=== PATIENT | female | born 1950 | race Hispanic/Latino ===

== ENCOUNTER 2024-05-04 07:15 | Emergency (ER) | payer OTHER, MEDICARE ==
[~2024-05-04] VITALS: Ht 152.4 cm; Wt 68.5 kg
[2024-05-04 07:58] LABS: HEMATOCRIT 35.8 % (36-48); MEAN CORPUSCULAR HEMOGLOBIN 29.9 pg (27.0-33.0); MEAN CORPUSCULAR HGB CONC 33.5 g/dL (32.0-36.0); MEAN CORPUSCULAR VOLUME 89.1 fL (79-99); RED BLOOD CELL COUNT(AUTO) 4.02 MIL/uL (4.00-5.50); RED CELL DISTRIBUTION WIDTH 13.2 % (11.0-15.5); WHITE BLOOD COUNT (AUTO) 7.6 K/uL (4.8-10.8)
--- NOTE | 2024-05-04 07:59 | EKG ---
[facility] Test Date: 2024-05-04 Test Time: 07:56:16 Pat Name: JOAN CHEW Department: ED Room: Gender: F Nursery Nurse: [id number] : 1950 Requested By: ISRAEL SANTIAGO Order Number: [id number] Reading MD: Rei Koenig Measurements Intervals [place] Rate: 51 P: 56 PA: 163 QRS: 2 QRSD: 159 T: -10 QT: 497 QTc: 458 Interpretive Statements Sinus rhythm Right bundle branch block No previous ECG available for comparison Electronically Signed On 05-05-2024 07:58:29 [employer] SALES REPRESENTATIVE by Rei Koenig Please click the below link to view image of tracing.
[2024-05-04] MEDS: ondanSETRON 4MG INJ IVP ONE (08:05)
[2024-05-04] MEDS: mecliZINE HCL 25 MG TABLET PO ONE (08:05)
--- NOTE | 2024-05-04 08:10 | ERN ---
General Chief Complaint: Weakness Stated Complaint: WEAKNESS Time Seen by MD: 07:27 History of Present Illness Initial Comments This is a case of a 73-year-old female with a past medical history of vertigo, hypertension, diabetes mellitus type 2, high cholesterol , hypothyroidism, right shoulder rotator cuff tear who presented to the ER with the complaints of dizziness, spinning sensation, nausea since 6:00 a.m. in the morning. She states that the spinning sensation increases with change in position of the head lasting few seconds and is also associated with imbalance, bilateral lower extremity weakness while walking. She denies fever, chills, cold, cough, shortness of breath, chest pain, palpitations, abdominal pain, vomiting, burning sensation when urinating/increased frequency of urination, constipation/diarrhea, numbness/tingling sensation in upper and lower extremities. She is currently on metoprolol 25 mg b.i.d., lisinopril 20 mg, levothyroxine, metformin and atorvastatin medications. Allergies: Coded Allergies: No Allergy Information Available (Unverified Allergy, Unknown, 05/04/24) Past Medical History Past Medical History: Diabetes-Type II, High Cholesterol, Hypertension, Hypothyroid Past Surgical History: None Surgical History Other: DENIES PSHX ROS Dictation CONSTITUTIONAL: No chills, no fever, no weakness, no diaphoresis, no malaise, dizziness. HEAD/FACE: No signs of trauma. EENT: No eye pain, no blurred vision, no tearing, no double vision, no ear pain, no ear discharge, no nose pain, no nasal congestion, no throat pain, no throat swelling, no mouth pain. RESPIRATORY: No cough, no orthopnea, no SOB, no stridor, no wheezing. CARDIOVASCULAR: No chest pain, no edema, no palpitations, no syncope. GASTROINTESTINAL/ABDOMINAL: No abdominal pain, no constipation, no diarrhea, nausea, no vomiting. GENITOURINARY: No abnormal discharge, no dysuria, no frequent urination, no hematuria. No complaints of pain in the genitals. MUSCULOSKELETAL: No back pain, no gout, no joint pain, no joint swelling, no muscle pain, no muscle stiffness, no neck pain. INTEGUMENTARY: No change in color, no change in hair/nails, no dryness, no lesion, no lumps, no rash. NEUROLOGICAL/PSYCH: No anxiety, not depressed, no emotional problem, no headache, no numbness, no pre-existing deficit, no history of seizures, no tremors, no weakness. HEMATOLOGIC/LYMPHATIC: Not anemic, no history of blood clots, no apparent bleeding, no bruising, glands not swollen. All Systems Negative, Except as Noted. Physical Exam Physical Exam Dictation Physical Exam Dictation VITAL SIGNS: Reviewed. GENERAL APPEARANCE: Alert, oriented x3, no acute distress HEAD AND FACE: Non-traumatic. EYES: PERRL, pink conjunctivas, eyelid no trauma, anterior chamber clear. Positive Robyn Hallpike maneuver on the left side EARS: Pinnas intact and no signs of trauma or erythema. Ear canals clear and no discharge. TMs no erythema. NOSE: No discharge, no bleeding. OROPHARYNX: Mouth normal, teeth no caries, tongue pink. Pharynx clear, no erythema. Tonsils no exudates, no abscesses noted. Mucous membrane moist. NECK: Supple, non-tender, no thyromegaly, no masses, no JVD, no bruits. BREAST: Deferred. CHEST: No tenderness, no crepitus, no paradoxical movement, no retractions. LUNGS: Clear, well-ventilated, symmetric, no rales, no wheezing, no rhonchi, no stridor, good breath sounds bilaterally. HEART: Regular rate, regular rhythm, no murmur, no gallops. VASCULAR: No peripheral edema. ABDOMEN: Soft, positive bowel sounds, nondistended, no guarding, nontender, no rebound, , no Van's sign, no hernias. RECTAL: Deferred. GENITAL: Deferred. NEUROLOGICAL: Normal speech, gross motor function intact, gross sensory function intact. MUSCULOSKELETAL: Neck nontender, full range of motion, back nontender, full range of motion, restricted motion of the right shoulder secondary to rotator cuff tear. EXTREMITIES: Nontender, full range of motion in bilateral lower extremities with 5/5 motor strength, intact sensations. SKIN: Color pink, dry, no turgor, no rash, no lacerations, no abrasions, no contusions. LYMPHATICS: Deferred. Results Laboratory and Microbiology Lab and Micro Result Laboratory Tests Test 05/04/24 06:59 05/04/24 07:46 05/04/24 10:13 05/04/24 12:32 Urine Color YELLOW (YELLOW) Urine Appearance CLOUDY (CLEAR) H Urine pH 5.0 (5.0-8.0) Urine Specific Chunky 1.019 (1.001-1.031) Urine Protein 10 mg/dL (NEGATIVE) H Urine Glucose (UA) NEGATIVE mg/dL (NEGATIVE) Urine Ketones NEGATIVE mg/dL (NEGATIVE) Urine Occult Blood MODERATE (NEGATIVE) H Urine Nitrate NEGATIVE (NEGATIVE) Urine Bilirubin NEGATIVE mg/dL (NEGATIVE) Urine Urobilinogen 0.2 mg/dL (0.2-1.0) Urine Leukocyte Esterase 250 Ana/uL (NEGATIVE) H Urine RBC 11-25 /HPF (0-1) H Urine WBC 6-10 /HPF (0-1) H Urine Squamous Epithelial Cells MANY /HPF (0-2) Urine Bacteria FEW /HPF (None Seen) White Blood Count 7.6 K/uL (4.8-10.8) Red Blood Count 4.02 MIL/uL (4.00-5.50) Hemoglobin 12.0 g/dL (12.0-16.0) Hematocrit 35.8 % (36-48) L Mean Corpuscular Volume 89.1 fL (79-99) Mean Corpuscular Hemoglobin 29.9 pg (27.0-33.0) Mean Corpuscular Hemoglobin Concent 33.5 g/dL (32.0-36.0) Red Cell Distribution Width 13.2 % (11.0-15.5) Platelet Count 220 K/uL (130-400) Mean Platelet Volume 9.5 fL (7.5-10.5) Nucleated Red Blood Cells 0.0 % (0.0-0.19) Sodium Level 129 mmol/L (136-145) L Potassium Level 3.7 mmol/L (3.5-5.1) Chloride Level 103 mmol/L (101-111) Carbon Dioxide Level 32 mmol/L (21-32) Blood Urea Nitrogen 13 mg/dL (7-18) Creatinine 0.7 mg/dL (0.5-1.0) Glomerular Filtration Rate Calc 92 mL/min (>90) Random Glucose 110 mg/dL (70-105) H Total Calcium 9.1 mg/dL (8.5-10.1) Total Bilirubin 0.6 mg/dL (0.2-1.0) Aspartate Amino Transf (AST/SGOT) 19 U/L (10-37) Alanine Aminotransferase (ALT/SGPT) 20 U/L (12-78) Alkaline Phosphatase 77 U/L (50-136) Troponin I High Sensitivity 85 ng/L (4-50) *H 99 ng/L (4-50) *H 99 ng/L (4-50) *H Total Protein 7.0 g/dL (6.0-8.3) Albumin 3.5 g/dL (3.5-5.0) MDM MDM Potential differential diagnoses include: BPPV UTI Electrolyte imbalance NH Stroke Assessment: We will order CBC to rule any anemia, infections and to evaluate the overall health of the patient. CMP was ordered in order to assess various electrolytes, kidney function, liver function ,protein levels and blood glucose levels, urinalysis, troponin levels. We will order meclizine 25 mg p.o., Zofran 4 mg IV for nausea. I will re-evaluate the patient after treatment and diagnostic exams have returned to determine whether they require further testing, can be safely discharged home, or need admission for further treatment and evaluation. Given the social determinants of health affecting care, including literacy, access to medical care, prescription drug management, and [id number] drugs, I will ensure that treatment plans are tailored accordingly. Revaluation : Patient is alert awake and oriented. She states that she feels better and her dizziness has improved. She denies chest pain, palpitations, chest pressure. NIH stroke scale is 0. Cranial nerve examination is normal. Motor strength is 5/5 in bilateral lower extremities, restricted movement of the right upper extremity due to rotator cuff tear. Speech is normal. Sensations are intact in all dermatomes. Labs sodium 129, troponin trend 85 and 99, urinalysis positive for leukocyte esterase indicating infection. Patient was given 500 mL of NS. Disposition: PATIENT IS BEING DISCHARGED HOME WITH PRESCRIPTION OF MECLIZINE 25 MG T.I.D. P.O. FOR 7 DAYS FOR VERTIGO, MACROBID 100 MG B.I.D. P.O. FOR 5 DAYS, ONDANSETRON 4 MG Q.8H P.R.N. FOR 4 DAYS FOR NAUSEA Advised to follow up with PCP within 2-3 days BPPV Avoid sudden head movements or changes in position to prevent triggering dizziness Be cautious when getting out of bed or bending over. Move slowly and deliberately. Monitor for new symptoms like hearing loss, severe headache or fainting. UTI Complete the Macrobid antibiotic course as directed for UTI Drink plenty of fluids especially water Avoid caffeine, alcohol or spicy foods Monitor for symptoms like persistent or worsening pain or burning during urination, fever, chills, nausea or back/flank pain and seek immediate medical attention in such scenario ED Course Orders Procedure Category Date Status Time Cbc Without LAB 05/04/24 Complete Differential 07:41 Comprehensive LAB 05/04/24 Complete Metabolic Panel 07:41 12 Lead Ekg Tracing- EKG 05/04/24 Complete Technical 07:41 Urinalysis Profile LAB 05/04/24 Complete 07:42 Troponin I High LAB 05/04/24 Complete Sensitivity 07:52 Meclizine Hcl 25 Mg PHA 05/04/24 Complete (Antivert 25 Mg) 08:00 Ondansetron 4mg Inj PHA 05/04/24 Complete (Zofran 4mg Inj) 08:00 0.9% Nacl 500ml PHA 05/04/24 Complete Iv.Soln (Ns 500ml 09:00 Culture Urine RAMEZ 05/04/24 In Process 08:48 Troponin I High LAB 05/04/24 Complete Sensitivity 09:35 Troponin I High LAB 05/04/24 Complete Sensitivity 11:39 Current Medications Medications (Trade) Dose Ordered Sig/Chaparrita Route PRN Reason Start Time Stop Time Status Last Admin Dose Admin Meclizine HCl (ANTIvert 25 mg) 25 mg ONCE ONCE PO 05/04/24 08:00 05/04/24 08:01 DC 05/04/24 08:05 Ondansetron HCl (zoFRAN 4MG INJ) 4 mg ONCE ONCE IVP 05/04/24 08:00 05/04/24 08:01 DC 05/04/24 08:05 Sodium Chloride 500 ml @ 0 mls/hr ONCE ONCE IV 05/04/24 09:00 05/04/24 09:01 DC 05/04/24 08:56 Vital Signs Date Time Temp Pulse Resp B/P (MAP) Pulse Ox O2 Delivery O2 Flow Rate FiO2 05/04/24 12:56 98.2 63 16 167/63 100 Room Air* 0 21 05/04/24 09:45 56 16 132/47 99 Room Air* 0 21 05/04/24 08:28 52 16 142/47 99 Room Air* 0 21 05/04/24 07:27 97.9 59 16 179/62 99 Room Air* 0 21 05/04/24 07:23 97.9 59 16 179/62 99 Room Air 0 DX & DISP Disposition: Discharge Departure Impression: Primary Impression: BPPV (benign paroxysmal positional vertigo) Additional Impression: UTI (urinary tract infection) Critical Time: 30 minutes Condition: Stable Scripts Meclizine HCl (Medi-Meclizine) 25 Mg Tablet 1 TAB PO TID PRN for VERTIGO for 7 Days, #21 TAB 0 Refills Prov: AMY ALLISON MD 05/04/24 Ondansetron (Ondansetron Odt) 4 Mg Tab.rapdis 1 TAB PO Q8HPRN PRN for nausea/vomiting for 4 Days, #12 TAB 0 Refills Prov: AMY ALLISON MD 05/04/24 Nitrofurantoin/Nitrofuran Mac (Macrobid) 100 Mg Cap 1 CAP PO BID for 5 Days, #10 CAP 0 Refills Prov: AMY ALLISON MD 05/04/24 Additional Instructions: Advised to follow up with PCP within 2-3 days BPPV Avoid sudden head movements or changes in position to prevent triggering dizziness Be cautious when getting out of bed or bending over. Move slowly and deliberately. Monitor for new symptoms like hearing loss, severe headache or fainting. UTI Complete the Macrobid antibiotic course as directed for UTI Drink plenty of fluids especially water Avoid caffeine, alcohol or spicy foods Monitor for symptoms like persistent or worsening pain or burning during urination, fever, chills, nausea or back/flank pain and seek immediate medical attention in such scenario Referrals: CHAVO REHMAN MD (PCP) ATTESTATION BY PHYSICIAN I have seen and examined the patient. I reviewed the documentation, medical decision making, and treatment plan as noted by the RESIDENT above. I agree with the findings and plan of care. AMY VEGA MD, MD May 04, 2024 08:10
[2024-05-04 08:15] LABS: ALBUMIN 3.5 g/dL (3.5-5.0); BILIRUBIN,TOTAL 0.6 mg/dL (0.2-1.0); CREATININE 0.7 mg/dL (0.5-1.0); POTASSIUM 3.7 mmol/L (3.5-5.1)
[2024-05-04 08:43] LABS: APPEARANCE,URINE CLOUDY (CLEAR); BILIRUBIN,URINE NEGATIVE (NEGATIVE); COLOR,URINE YELLOW (YELLOW); GLUCOSE, URINE (UA) NEGATIVE (NEGATIVE); KETONES,URINE NEGATIVE (NEGATIVE); LEUKOCYTE ESTERASE ,URINE 250 Leu/uL (NEGATIVE); NITRATE,URINE NEGATIVE (NEGATIVE); OCCULT BLOOD,URINE MODERATE (NEGATIVE); PROTEIN,URINE 10 mg/dL (NEGATIVE); UROBILINOGEN,URINE 0.2 mg/dL (0.2-1.0)
[2024-05-04 08:48] LABS: ADD UA MICROSCOPIC YES
[2024-05-04] MEDS: 0.9% NACL 500ML IV.SOLN 500 ML IV ONE (08:56)
[2024-05-04 09:06] LABS: BACTERIA,URINE FEW /HPF (None Seen); MUCUS,URINE RARE LPF (None Seen); SQUAMOUS EPITHELIAL CELL,UR MANY /HPF (0-2)
[2024-05-04] MEDS ORDERED: MECL25TA39 PO (13:32)
[2024-05-04] MEDS ORDERED: MACR100 PO (13:32)
[2024-05-04] MEDS ORDERED: ONDA-243 PO (13:32)
[2024-05-04 14:31] VITALS: BP 158/64; PULSE 64; RESP 16; TEMP 98.2; O2SAT 98
== END 2024-05-04 14:44 | disposition home or self-care (01) ==
LOC: EDH 07:15
DX: H81.10 Benign paroxysmal vertigo, unspecified ear (principal); N39.0 Urinary tract infection, site not specified; E11.9 Type 2 diabetes mellitus without complications; E03.9 Hypothyroidism, unspecified; E78.00 Pure hypercholesterolemia, unspecified; I10 Essential (primary) hypertension; Z79.899 Other long term (current) drug therapy
CPT/HCPCS: 99284; 96374; 84484 ×3; 80053; 85027; 87086; 81001; 36415; 93005; J7040; J2405

== ENCOUNTER 2024-07-24 03:20 | Emergency (ER) | payer OTHER, MEDICARE ==
[~2024-07-24] VITALS: Ht 152.4 cm; Wt 70.3 kg
[~2024-07-24 03:20] MED LIST: MACR100 PO; MECL25TA39 PO; ONDA-243 PO
[2024-07-24] MEDS ORDERED: physical therapy (03:30)
--- NOTE | 2024-07-24 03:33 | ERN ---
General Chief Complaint: Headache Stated Complaint: C/O HEADACHE Time Seen by MD: 03:28 Source: patient History of Present Illness Initial Comments 74-year-old female with a history of diabetes hypertension and high cholesterol said that she woke up with a headache and she has not been able to fix it with Tylenol or Mary Alice aspirin. Patient states she has no history of sinus infections cough sneezing or allergies. There was no prodrome associated with a headache she does not have a history of migraines. Said the headache started on her right temporal forehead area migrated across to the left side of her temporal area down along the jaw line and then across her right neck. Timing/Duration: 1 hour, 1-3 hours Allergies: Coded Allergies: No Allergy Information Available (Unverified Allergy, Unknown, 05/04/24) Home Meds Active Scripts [physical therapy] No Conflict Check, ELTON .AD DAILY, #1 Prov:SAWYER MCKEON MD 07/24/24 Meclizine HCl (Medi-Meclizine) 25 Mg Tablet, 1 TAB PO TID PRN for VERTIGO for 7 Days, #21 TAB 0 Refills Prov:AMY ALLISON MD 05/04/24 Ondansetron (Ondansetron Odt) 4 Mg Tab.rapdis, 1 TAB PO Q8HPRN PRN for nausea/vomiting for 4 Days, #12 TAB 0 Refills Prov:AMY ALLISON MD 05/04/24 Nitrofurantoin/Nitrofuran Mac (Macrobid) 100 Mg Cap, 1 CAP PO BID for 5 Days, #10 CAP 0 Refills Prov:AMY ALLISON MD 05/04/24 Past Medical History Past Medical History: Diabetes-Type II, High Cholesterol, Hypertension Past Surgical History: None Surgical History Other: DENIES PSHX Constitutional: (-) chills, (-) diaphoresis, (-) fever, (-) malaise, (-) weakness, (-) other documentation EENTM: (-) eye pain, (-) blurred vision, (-) tearing, (-) double vision, (-) ear pain, (-) ear discharge, (-) nose pain, (-) nose congestion, (-) throat p ain, (-) Throat swelling, (-) mouth pain, (-) tooth pain, (-) mouth swelling, (- ) other documentation Respiratory: (-) cough, (-) orthopnea, (-) short of breath, (-) stridor, (-) wheezing, (-) other documentation Cardiovascular: (-) chest pain, (-) edema, (-) palpitations, (-) syncope, (-) dyspnea on exertion, (-) other documentation Gastrointestinal/Abdominal: (-) nausea, (-) vomiting, (-) diarrhea, (-) abdominal pain, (-) abdominal distention, (-) constipation, (-) rectal bleeding, (-) dark stool/melena, (-) other documentation Genitourinary: (-) vaginal discharge, (-) vaginal bleeding, (-) dysuria, (-) frequency, (-) hematuria, (-) pain, (-) other documentation Musculoskeletal: (-) Neck pain, (-) back pain, (-) Flank Pain, (-) joint pain, (-) joint swelling, (-) muscle pain, (-) muscle stiffness, (-) gout, (-) other documentation Skin: (-) laceration, (-) contusion, (-) abrasion, (-) abscess, (-) rash, (-) change in color, (-) change in hair, (-) change in nails, (-) diaphoresis, (-) dryness, (-) other documentation Psych: (-) depression, (-) suicidal ideation, (-) anxiety, (-) emotional problems, (-) auditory hallucinations, (-) visual hallucinations Physical Exam General Appearance: (+) no apparent distress, (+) mild distress Orientation: (+) alert Head/Face Trauma: No Eye: bilateral eye normal inspection, bilateral eye PERRL, bilateral eye EOMI Ear, Nose, Throat: (+) hearing grossly normal, (+) normal ENT inspection, (+) moist mucous membraine, (+) normal pharynx Ear, Nose, Throat Comment She has no maxillary or frontal or supra orbital sinus tenderness Neck: (+) normal inspection, (+) supple, (+) full range of motion Respiratory: (+) chest non-tender, (+) lungs clear, (+) well ventilated Heart: (+) regular, (+) no gallop, (+) murmur Vascular: (+) no edema, (+) normal peripheral pulse Gastrointestinal: (+) soft, (+) non-tender, (+) bowel sound present MDM Patient's migrating headache maybe a migraine or tension headache. Currently the symptoms are not that alarming I do not feel a need for a CT head. This is not the worst headache she has ever had in her entire life. Note her blood pressure is systolic 170. I will give her some Toradol some IV fluids and check her BMP. Also 20 mg IV hydralazine. ED Course Vital Signs Date Time Temp Pulse Resp B/P (MAP) Pulse Ox O2 Delivery O2 Flow Rate FiO2 07/24/24 03:31 98.6 66 20 162/52 97 Room Air* 0 21 07/24/24 03:21 99.7 59 20 185/67 100 Room Air DX & DISP Disposition: Discharge Departure Condition: Stable Scripts [physical therapy] No Conflict Check ELTON .AD DAILY, #1 Prov: SAWYER MCKEON MD 07/24/24 Referrals: HARDIK NEGRETE MD (PCP) SAWYER MCKEON MD Jul 24, 2024 03:33
[2024-07-24] MEDS: hydrALAZine 20MG/ML VIAL IM ONE (03:59)
[2024-07-24] MEDS: ketOROlac 30MG VIAL (30MG/ML) IVP ONE (03:59)
[2024-07-24] MEDS: LACTATED RINGERS 1000ML IV ONE (03:59)
[2024-07-24 04:14] LABS: CREATININE 0.8 mg/dL (0.5-1.0); POTASSIUM 3.8 mmol/L (3.5-5.1)
[2024-07-24] MEDS: ondanSETRON 4MG INJ IVP ONE (04:32)
[2024-07-24] MEDS: ondanSETRON 4MG INJ ONE (04:33)
[2024-07-24] MEDS: CYCLOBENZAPRINE HCL 10 MG TABLET PO ONE (04:36)
--- NOTE | 2024-07-24 06:30 | NUR ---
TRANSFER: CALL PLACED TO [facility]; TRANSFER INITIATED FOR NEUROLOGY SERVICES.
--- NOTE | 2024-07-24 08:01 | HMCIMG ---
CT HEAD/BRAIN W/O CONTRAST HISTORY: Headaches COMPARISON: None TECHNIQUE: Multiple sequential axial images of the head were obtained from the base of the skull through vertex. Patient was not given contrast through intravenous route. FINDINGS: The ventricles and extraventricular CSF spaces are dilated consistent with cerebral atrophy. Nonspecific white matter changes seen. 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 There is no midline shift, mass effect or herniation. No acute intracranial bleed is seen. Visualized portion of the paranasal sinuses are grossly within normal limits. IMPRESSION: 1. No acute intracranial bleed is seen. 2. Atrophy with white matter changes. Suspected acute/subacute right temporal lobe infarct. Report was given by the [facility] service. CT was performed with one or more following dose reduction techniques: automated exposure control, adjustment of the mA and kv according to patient's size, or use of a iterative reconstruction technique.
[2024-07-24 09:49] LABS: APPEARANCE,URINE CLEAR (CLEAR); BILIRUBIN,URINE NEGATIVE (NEGATIVE); COLOR,URINE LIGHT-YELLOW (YELLOW); GLUCOSE, URINE (UA) NEGATIVE (NEGATIVE); KETONES,URINE NEGATIVE (NEGATIVE); LEUKOCYTE ESTERASE ,URINE 75 Leu/uL (NEGATIVE); NITRATE,URINE NEGATIVE (NEGATIVE); OCCULT BLOOD,URINE MODERATE (NEGATIVE); PROTEIN,URINE NEGATIVE (NEGATIVE); UROBILINOGEN,URINE 0.2 mg/dL (0.2-1.0)
[2024-07-24 09:50] LABS: ADD UA MICROSCOPIC YES
[2024-07-24 09:54] LABS: BACTERIA,URINE RARE /HPF (None Seen); MUCUS,URINE RARE LPF (None Seen); SQUAMOUS EPITHELIAL CELL,UR FEW /HPF (0-2)
[2024-07-24 10:30] VITALS: BP 110/44; PULSE 60; RESP 18; TEMP 98; O2SAT 97
--- NOTE | 2024-07-24 10:30 | NUR ---
JACKTS ATTEMPT AT CALLING REPORT FOR TRANSFER.
--- NOTE | 2024-07-24 10:35 | NUR ---
REPORT GIVEN TO MARK CASTILLO.ALSO TO LORI SEBASTIAN WHO IS TAKEING [facility] PT TO RM [id number] AT [facility].
--- NOTE | 2024-07-24 10:42 | NUR ---
PT LEFT WITH [facility]
== END 2024-07-24 10:52 | disposition short-term general hospital (02) ==
LOC: EDH 03:20
DX: R51.9 Headache, unspecified (principal); E11.9 Type 2 diabetes mellitus without complications; E78.00 Pure hypercholesterolemia, unspecified; I10 Essential (primary) hypertension; Z86.73 Personal history of transient ischemic attack (TIA), and cerebral infarction without residual deficits; Z79.899 Other long term (current) drug therapy
CPT/HCPCS: 99285; 96374; 70450; 96375; 80048; 81001; 36415; 96372; J1885; J7120; J0360; J2405